=== PATIENT | male | born 1965 | race Caucasian/White ===

== ENCOUNTER 2018-03-30 16:54 | Emergency (ER) | payer OTHER ==
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
[2018-03-30 16:59] VITALS: BP 141/90
== END 2018-03-30 17:05 | disposition home or self-care (01) ==
LOC: ED 16:54
DX: Z02.89 Encounter for other administrative examinations (principal); T75.4XXA Electrocution, initial encounter
CPT/HCPCS: 99281; 99282